=== PATIENT | female | born 1950 | race American Indian/Alaskan Native ===

== ENCOUNTER 2025-04-10 20:31 | Emergency (ER) | payer OTHER ==
[2025-04-10] MEDS: HYDROmorphone 0.5 MG/0.5 ML Syringe IVPUSH ONE (21:32)
[2025-04-10] MEDS: Sodium Chloride 0.9% 1,000 ML IV ONE (21:33)
[2025-04-10] MEDS: Sodium Chloride 0.9% 10 ML Syringe FLUSH PRN (21:34)
[2025-04-10 21:39] LABS: BASOPHILS ABSOLUTE AUTO 0.1 K/mm3 (0.0-0.2); BASOPHILS PERCENT AUTO 0.7 % (0.0-1.0); EOSINOPHILS ABSOLUTE AUTO 0.2 K/mm3 (0.0-0.4); EOSINOPHILS PERCENT AUTO 1.5 % (0.0-6.0); HEMATOCRIT 37.6 % (37.0-47.0); HEMOGLOBIN 13.4 gm/dl (12.0-16.0); IMMATURE GRAN ABSOLUTE AUTO 0.06 K/mm3 (0.00-0.05); IMMATURE GRAN PERCENT AUTO 0.6 % (0.0-0.4); LYMPHOCYTES ABSOLUTE AUTO 1.8 K/mm3 (1.0-4.8); MEAN CORPUSCULAR HEMOGLOBIN 32.1 pg (28.0-32.0); MEAN CORPUSCULAR HGB CONC 35.6 g/dl (32.0-36.0); MEAN CORPUSCULAR VOLUME 90.2 fl (83.0-99.0); MEAN PLATELET VOLUME 8.8 fl (9.4-12.3); MONOCYTES ABSOLUTE AUTO 0.7 K/mm3 (0.0-0.8); MONOCYTES PERCENT AUTO 6.9 % (0.0-8.0); NEUTROPHILS ABSOLUTE AUTO 7.1 K/mm3 (1.8-7.7); NEUTROPHILS PERCENT AUTO 72.3 % (41.0-71.0); PLATELET COUNT,PLT 290 K/mm3 (150-400); RED BLOOD CELL COUNT 4.17 M/mm3 (4.10-5.30); WHITE BLOOD CELL COUNT,WBC 9.86 K/mm3 (3.9-11.3)
[2025-04-10] MEDS: Bacitracin Oint 15 GM Tube TOP ONE (21:54)
[2025-04-10] MEDS: Diphtheria,Pertussis(Acell),Tetanus Vaccine 0.5 ML Syringe IM ONE (21:55)
[2025-04-10] MEDS: Iopamidol 612 MG/ML 30 ML SDV IVPUSH ONE (22:04)
[2025-04-10] MEDS: Iopamidol 612 MG/ML 100 ML Bottle IVPUSH ONE (22:04)
[2025-04-10] MEDS: Sodium Chloride 0.9% 100 ML IV SCH (22:05)
[2025-04-10] MEDS: Sodium Chloride 0.9% 10 ML Syringe FLUSH ONE (22:05)
[2025-04-10 22:07] LABS: A/G RATIO 1.2 (1-2); ALANINE AMINOTRANSFERASE,ALT 24 U/L (14-59); ALBUMIN 3.6 g/dl (3.4-5.0); ALKALINE PHOSPHATASE 94 U/L (46-116); ANION GAP 13.4 (5-15); BILIRUBIN TOTAL 0.5 mg/dL (0.2-1.0); BLOOD UREA NITROGEN,BUN 11 mg/dL (7-18); BUN/CREATININE RATIO 13.8 (14-18); CALCIUM 8.8 mg/dL (8.5-10.1); CARBON DIOXIDE,CO2 26 mEq/L (21-32); CHLORIDE,CL 92 mEq/L (98-107); CREATININE 0.8 mg/dL (0.55-1.02); ESTIMATED GFR 76 mL/min (>60); ETHANOL BLOOD MEDICAL 0.04 gm% (0.00); GLUCOSE RANDOM 168 mg/dL (70-99); LIPASE 63 U/L (16-77); PROTEIN TOTAL,TP 6.6 g/dl (6.4-8.2); SODIUM,NA 128 mEq/L (136-145)
[2025-04-10 22:11] LABS: ASPARTATE AMNIOTRANSFERASE,AST 24 U/L (15-37); POTASSIUM,K 3.4 mEq/L (3.5-5.1)
[2025-04-10 22:37] LABS: APPEARANCE,URINE CLEAR (Clear); BILIRUBIN,URINE NEGATIVE (Negative); COLOR,URINE LIGHT YELLOW (Yellow); GLUCOSE,URINE NEGATIVE (Negative); KETONES,URINE NEGATIVE (Negative); LEUKOCYTE ESTERASE,URINE NEGATIVE (Negative); NITRITE,URINE NEGATIVE (Negative); OCCULT BLOOD,URINE NEGATIVE (Negative); PROTEIN,URINE TRACE (Negative); UROBILINOGEN,URINE 0.2 (0.2-1.0)
[2025-04-10 22:42] LABS: RBC,URINE 0-5 /hpf (0-5); SQUAMOUS EPITHELIAL CELLS,UR 0-5 /hpf (0-5); WBC,URINE 0-5 /hpf (0-5)
[2025-04-10 22:43] LABS: BACTERIA,URINE FEW /hpf (FEW); MUCUS,URINE FEW /hpf (FEW)
[2025-04-10 22:46] LABS: BARBITURATE SCREEN,URINE NEGATIVE (CUTOFF=200); BENZODIAZEPINES SCREEN,URINE NEGATIVE (CUTOFF=150); BUPRENORPHINE SCREEN,URINE NEGATIVE (CUTOFF=10); METHADONE SCREEN, URINE NEGATIVE (CUTOFF=200); METHAMPHETAMINES SCREEN, URINE NEGATIVE (CUTOFF=500); OXYCODONE SCREEN,URINE NEGATIVE (CUT0FF=100); THC SCREEN,URINE 20 NG/ML NEGATIVE (CUTOFF=50)
[2025-04-10 22:47] LABS: AMPHETAMINES SCREEN, URINE NEGATIVE (CUTOFF=500)
[2025-04-11] MEDS: HYDROmorphone 0.5 MG/0.5 ML Syringe IVPUSH ONE (01:43)
== END 2025-04-11 02:29 | disposition home or self-care (01) ==
LOC: JD.ED 20:31
DX: S42.111A Displaced fracture of body of scapula, right shoulder, initial encounter for closed fracture (principal); S22.41XA Multiple fractures of ribs, right side, initial encounter for closed fracture; S01.01XA Laceration without foreign body of scalp, initial encounter; E87.1 Hypo-osmolality and hyponatremia; R73.9 Hyperglycemia, unspecified; R91.1 Solitary pulmonary nodule; V89.2XXA Person injured in unspecified motor-vehicle accident, traffic, initial encounter; Z23 Encounter for immunization
CPT/HCPCS: 12002; 36415; 70450; 71045; 71260; 72125; 72170; 73060; 73090; 73120; 73552; 73590; 73630; 74177; 80053; 80306; 80307; 81001; 83690; 85025; 86850; 86900; 86901; 90471; 90715; 93005; 96361; 96374; 96376; 99284; A9270; J7030; Q9967; 93010; J1171